=== PATIENT | female | born 1935 | race African-American/Black ===

== ENCOUNTER 2018-07-02 08:53 | Emergency (ER) | payer OTHER, MEDICAID ==
[~2018-07-02] VITALS: Ht 167.6 cm; Wt 55.0 kg
[2018-07-02 09:07] VITALS: BP 136/82
== END 2018-07-02 13:13 | disposition home or self-care (01) ==
LOC: ER 08:53
DX: S20.469A Insect bite (nonvenomous) of unspecified back wall of thorax, initial encounter (principal); I10 Essential (primary) hypertension; W57.XXXA Bitten or stung by nonvenomous insect and other nonvenomous arthropods, initial encounter; Y93.89 Activity, other specified; Y92.89 Other specified places as the place of occurrence of the external cause; Y99.8 Other external cause status
CPT/HCPCS: 99282